=== PATIENT | female | born 2000 | race Caucasian/White ===

== ENCOUNTER 2021-05-21 14:45 | Outpatient (CLI) | payer BC | END 2021-05-21 14:46 | disposition home or self-care (01) | LOC: CSHMRI 14:45 | PROVIDERS: ATTEND Psychiatry & Neurology Neurology | DX: G43.019 Migraine without aura, intractable, without status migrainosus (principal) | CPT/HCPCS: 70553 ==

== ENCOUNTER 2023-09-01 14:52 | Outpatient (CLI) | payer BC | END 2023-09-01 14:53 | disposition home or self-care (01) | LOC: CSHMRI 14:52 | PROVIDERS: ATTEND Family Medicine | DX: G43.019 Migraine without aura, intractable, without status migrainosus (principal); J32.9 Chronic sinusitis, unspecified | CPT/HCPCS: 70553 ==